=== PATIENT | male | born 1985 | race African-American/Black ===

== ENCOUNTER 2025-03-13 08:17 | Emergency (ER) | payer OTHER ==
[~2025-03-13] VITALS: Ht 172.7 cm; Wt 94.0 kg
[2025-03-13 08:19] VITALS: O2SAT 100
[2025-03-13 08:22] VITALS: BP 178/113; PULSE 99; RESP 14; TEMP 36.9; O2SAT 99
== END 2025-03-13 09:11 | disposition home or self-care (01) ==
LOC: ER 08:17
DX: B34.9 Viral infection, unspecified (principal)
CPT/HCPCS: 99281; 99282